=== PATIENT | male | born 1995 | race Caucasian/White ===

== ENCOUNTER 2017-03-02 04:40 | Day surgery (SDC) | payer OTHER ==
[~2017-03-02] VITALS: Ht 177.8 cm; Wt 61.3 kg
--- NOTE | 2017-03-02 05:11 | ED Abdominal Pain ---
General Chief Complaint: Abdominal/GI Problems Stated Complaint: ABD PAIN Source of Information: Patient History of Present Illness Time Seen By Provider: 04:55 Initial Comments PT C/O GENERALIZED ABDOMINAL PAIN SINCE 1700 YESTERDAY AFTER NOON PT STATES HE ATE A VERY LARGE BOWL OF HAM AND BEANS, SHORTLY AFTER THAT HE BEGAN TO HAVE GENERALIZED ABDOMINAL PAIN PAIN HAS CONTINUED THROUGHOUT THE NIGHT, AND GOTTEN WORSE. SLIGHT NAUSEA, NO VOMITING NO FEVER NO URINARY SYMPTOMS WENT TO [employer] AND GOT AN ENEMA, AND USED IT PRIOR TO ARRIVAL. HAD TEMPORARY RELIEF OF PAIN AFTER HAVING BM, THEN PAIN CAME BACK HAS NOT BEEN CONSTIPATED, HAD A BM YESTERDAY AT 1400 PAIN IS WORSE WITH MOVING, STANDING UPRIGHT, LAYING FLAT/OUTSTRETCHED AND WITH MOVING RIGHT LEG PAIN IS MOST SEVERE ON RIGHT SIDE. Allergies and Home Medications Allergies Coded Allergies: No Known Drug Allergies (Unverified , 03/02/17) Review of Systems Constitutional: no symptoms reported Respiratory: No Symptoms Reported Cardiovascular: No Symptoms Reported Gastrointestinal: See HPI, Abdominal Pain, Denies Constipated, Nausea, Denies Vomiting Genitourinary: No Symptoms Reported Musculoskeletal: no symptoms reported Skin: no symptoms reported Psychiatric/Neurological: No Symptoms Reported Endocrine: No Symptoms Reported Hematologic/Lymphatic: No Symptoms Reported Past Byaxswh-Jcwzgd-Mnfmsj Hx Patient Social History Alcohol Use: Occasionally Uses Recreational Drug Use: No Smoking Status: Never a Smoker Recent Foreign Travel: No Contact w/Someone Who Travel: No Recent Hopitalizations: No Physical Abuse: No Sexual Abuse: No Mistreated: No Fear: No Surgeries History of Surgeries: Yes Surgeries: Adenoidectomy, Tonsillectomy Cardiovascular History of Cardiac Disorders: No Neurological History of Neurological Disord: No Genitourinary History of Genitourinary Disor: No Gastrointestinal History of Gastrointestinal Di: No Musculoskeletal History of Musculoskeletal Dis: No Endocrine History of Endocrine Disorders: No Psychosocial Suicide Risk Score: 0 Integumentary History of Skin or Integumenta: No Physical Exam Vital Signs VS - Last 72 Hours, by Label 03/02/17 04:50 Temp 97.7 Pulse 98 Resp 20 B/P (MAP) 140/76 (97) Pulse Ox 98 O2 Delivery Room Air Capillary Refill : General Appearance: mild distress (DUE TO PAIN), thin, other (WALKS SLOWLY, BENT AT WAIST. UNABLE TO LAY FLAT ON BACK--LAYS IN POSITION ON LEFT SIDE, HOLDING ABDOMEN. 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, no motor/sensory deficits, alert, oriented x 3 Skin: normal color, warm/dry, No rash Progress/Results/Core Measures Results/Orders Lab Results Laboratory Tests Test 03/02/17 05:42 03/02/17 05:51 Range/Units Urine Color YELLOW Urine Clarity CLEAR Urine pH 5 5-9 Urine Specific [place] 1.025 H 1.016-1.022 Urine Protein NEGATIVE NEGATIVE Urine Glucose (UA) NEGATIVE NEGATIVE Urine Ketones NEGATIVE NEGATIVE Urine Nitrite NEGATIVE NEGATIVE Urine Bilirubin NEGATIVE NEGATIVE Urine Urobilinogen NORMAL NORMAL MG/DL Urine Leukocyte Esterase NEGATIVE NEGATIVE Urine RBC (Auto) 3+ H NEGATIVE Urine RBC 0-2 /HPF Urine WBC NONE /HPF Urine Squamous Epithelial Cells NONE /HPF Urine Crystals NONE /LPF Urine Bacteria NEGATIVE /HPF Urine Casts NONE /LPF Urine Mucus SMALL H /LPF Urine Culture Indicated NO Urine Opiates Screen NEGATIVE NEGATIVE Urine Oxycodone Screen NEGATIVE NEGATIVE Urine Methadone Screen NEGATIVE NEGATIVE Urine Propoxyphene Screen NEGATIVE NEGATIVE Urine Barbiturates Screen NEGATIVE NEGATIVE Ur Tricyclic Antidepressants Screen NEGATIVE NEGATIVE Urine Phencyclidine Screen NEGATIVE NEGATIVE Urine Amphetamines Screen NEGATIVE NEGATIVE Urine Methamphetamines Screen NEGATIVE NEGATIVE Urine Benzodiazepines Screen NEGATIVE NEGATIVE Urine Cocaine Screen NEGATIVE NEGATIVE Urine Cannabinoids Screen NEGATIVE NEGATIVE White Blood Count 20.0 H 4.3-11.0 10^3/uL Red Blood Count 5.22 4.35-5.85 10^6/uL Hemoglobin 15.2 13.3-17.7 G/DL Hematocrit 43 40-54 % Mean Corpuscular Volume 82 80-99 FL Mean Corpuscular Hemoglobin 29 25-34 PG Mean Corpuscular Hemoglobin Concent 35 32-36 G/DL Red Cell Distribution Width 13.5 10.0-14.5 % Platelet Count 163 130-400 10^3/uL Mean Platelet Volume 10.3 7.4-10.4 FL Neutrophils (%) (Auto) 76 H 42-75 % Lymphocytes (%) (Auto) 13 12-44 % Monocytes (%) (Auto) 8 0-12 % Eosinophils (%) (Auto) 4 0-10 % Basophils (%) (Auto) 0 0-10 % Neutrophils # (Auto) 15.2 H 1.8-7.8 X 10^3 Lymphocytes # (Auto) 2.5 1.0-4.0 X 10^3 Monocytes # (Auto) 1.6 H 0.0-1.0 X 10^3 Eosinophils # (Auto) 0.7 H 0.0-0.3 10^3/uL Basophils # (Auto) 0.0 0.0-0.1 10^3/uL Neutrophils % (Manual) 70 % Lymphocytes % (Manual) 16 % Monocytes % (Manual) 6 % Eosinophils % (Manual) 2 % Basophils % (Manual) 0 % Band Neutrophils 2 % Reactive Lymphocytes 4 % Blood Morphology Comment NORMAL Sodium Level 138 135-145 MMOL/L Potassium Level 4.3 3.6-5.0 MMOL/L Chloride Level 102 98-107 MMOL/L Carbon Dioxide Level 24 21-32 MMOL/L Anion Gap 12 5-14 MMOL/L Blood Urea Nitrogen 10 7-18 MG/DL Creatinine 0.89 0.60-1.30 MG/DL Estimat Glomerular Filtration Rate > 60 BUN/Creatinine Ratio 11 Glucose Level 97 70-105 MG/DL Calcium Level 9.6 8.5-10.1 MG/DL Total Bilirubin 0.7 0.1-1.0 MG/DL Aspartate Amino Transf (AST/SGOT) 19 5-34 U/L Alanine Aminotransferase (ALT/SGPT) 12 0-55 U/L Alkaline Phosphatase 82 40-136 U/L Total Protein 8.0 6.4-8.2 GM/DL Albumin 4.7 H 3.2-4.5 GM/DL Amylase Level 41 25-125 U/L Lipase 27 8-78 U/L My Orders Orders - MIKKI,ELLIS K DO Abdomen, Flat & Upright/Decub (03/02/17 04:55) Saline Lock/Iv-Start (03/02/17 05:40) Amylase (03/02/17 05:40) Cbc With Automated Diff (03/02/17 05:40) Comprehensive Metabolic Panel (03/02/17 05:40) Lipase (03/02/17 05:40) Ua Culture If Indicated (03/02/17 05:40) Ct Abd/Pelv W (Appendicitis) (03/02/17 05:40) Saline Lock/Iv-Start (03/02/17 05:40) Saline Lock/Iv-Start (03/02/17 05:40) Lactated Ringers (Lr 1000 Ml Iv Solution (03/02/17 05:40) Ondansetron Injection (Zofran Injectio (03/02/17 05:45) Ketorolac Injection (Toradol Injection) (03/02/17 05:40) Manual Differential (03/02/17 05:51) Iohexol Injection (Omnipaque 350 Mg/Ml 1 (03/02/17 06:15) Ns (Ivpb) (Sodium Chloride 0.9% Ivpb Bag (03/02/17 06:15) Medications Given in ED Current Medications Medications Dose Ordered Sig/Carmen Route Start Time Stop Time Status Last Admin Dose Admin Iohexol 100 ml ONCE ONCE IV 03/02/17 06:15 03/02/17 06:16 DC 03/02/17 06:05 100 ML Lactated Ringer's 1,000 ml @ 0 mls/hr Q0M ONCE IV 03/02/17 05:40 03/02/17 06:01 DC 03/02/17 05:51 1,000 MLS/HR Ondansetron HCl 4 mg ONCE ONCE IVP 03/02/17 05:45 03/02/17 06:01 DC 03/02/17 05:52 4 MG Sodium Chloride 100 ml ONCE ONCE IV 03/02/17 06:15 03/02/17 06:16 DC 03/02/17 06:06 80 ML Vital Signs/I&O Vital Sign - Last 12Hours 03/02/17 04:50 Temp 97.7 Pulse 98 Resp 20 B/P (MAP) 140/76 (97) Pulse Ox 98 O2 Delivery Room Air Progress Note : Progress Note PAIN AND NAUSEA EASED WITH MEDICATIONS--ABLE TO LAY FLAT, AND NO LONGER TEARFUL , AND IS MORE TALKATIVE. NO DETERIORATION IN PT'S CONDITION DURING ER STAY Diagnostic Imaging Comments ABDOMEN XRAYS--NO ACUTE PROCESS, LARGE AMOUNT OF GAS AND STOOL, PENDING RADIOLOGIST REVIEW CT ABDOMEN/PELVIS--APPENDICITIS, PER [facility] VIA FAX @ Reviewed: Reviewed by Me Departure Communication (Admissions) Progress Notes 0620--SPOKE WITH DR. FUENTES, ACCEPTS PT FOR ADMIT. HE WILL TAKE PT TO SURGERY SOMETIME THIS MORNING. ADVISES TO START PT ON ZOSYN Impression Impression: Primary Impression: Appendicitis Disposition: ADMITTED INPATIENT Condition: Improved Admissions Decision to Admit Reason: Admit from ER (General) Decision to Admit/Date: Mar 02, 2017 Time/Decision to Admit Time: 06:20 Departure-Patient Inst. Referrals: NO,LOCAL PHYSICIAN (PCP/Family) Primary Care Physician ELLIS KAYE DO Mar 02, 2017 05:11
[2017-03-02] MEDS ORDERED: LACTATED RINGERS 1,000 ML IV ONE (05:40)
[2017-03-02] MEDS ORDERED: KETOROLAC 30 MG/ML VIAL IVP STA (05:40)
[2017-03-02] MEDS ORDERED: ONDANSETRON 4 MG/2 ML (SDV) Z0FRAN IVP ONE (05:45)
[2017-03-02 05:47] LABS: BILIRUBIN,URINE NEGATIVE (NEGATIVE); KETONES,URINE NEGATIVE (NEGATIVE); LEUKOCYTE ESTERASE ,URINE NEGATIVE (NEGATIVE); NITRITE,URINE NEGATIVE (NEGATIVE); PH,URINE 5 (5-9); PROTEIN,URINE NEGATIVE (NEGATIVE); UROBILINOGEN,URINE NORMAL (NORMAL)
[2017-03-02 06:00] LABS: BASOPHILS % (AUTO) 0 % (0-10); EOSINOPHILS # (AUTO) 0.7 10^3/uL (0.0-0.3); EOSINOPHILS % (AUTO) 4 % (0-10); LYMPHOCYTES # (AUTO) 2.5 X 10^3 (1.0-4.0); LYMPHOCYTES % (AUTO) 13 % (12-44); MEAN CORPUSCULAR HEMOGLOBIN 29 PG (25-34); MEAN CORPUSCULAR HGB CONC 35 G/DL (32-36); MEAN CORPUSCULAR VOLUME 82 FL (80-99); MEAN PLATELET VOLUME 10.3 FL (7.4-10.4); MONOCYTES # (AUTO) 1.6 X 10^3 (0.0-1.0); MONOCYTES % (AUTO) 8 % (0-12); NEUTROPHILS # (AUTO) 15.2 X 10^3 (1.8-7.8); NEUTROPHILS % (AUTO) 76 % (42-75); PLATELET COUNT 163 10^3/uL (130-400); RED BLOOD COUNT 5.22 10^6/uL (4.35-5.85); RED CELL DISTRIBUTION WIDTH 13.5 % (10.0-14.5)
[2017-03-02 06:14] LABS: BAND NEUTROPHILS 2 %; BASOPHILS % (MANUAL) 0 %; EOSINOPHILS % (MANUAL) 2 %; LYMPHOCYTES % (MANUAL) 16 %; NEUTROPHILS % (MANUAL) 70 %; REACTIVE LYMPHOCYTES 4 %
[2017-03-02] MEDS ORDERED: NS 100 ML (IVPB) BAG IV ONE (06:15)
[2017-03-02] MEDS ORDERED: IOHEXOL 350 MG/ML 100 ML (OMNIPAQUE 350) VIAL IV ONE (06:15)
[2017-03-02 06:28] LABS: ALANINE AMINOTRANSFERASE 12 U/L (0-55); ALBUMIN 4.7 GM/DL (3.2-4.5); AMYLASE 41 U/L (25-125); ANION GAP 12 MMOL/L (5-14); ASPARTATE AMINO TRANSFERASE 19 U/L (5-34); BILIRUBIN,TOTAL 0.7 MG/DL (0.1-1.0); BLOOD UREA NITROGEN 10 MG/DL (7-18); BUN/CREATININE RATIO 11; CALCIUM 9.6 MG/DL (8.5-10.1); CARBON DIOXIDE 24 MMOL/L (21-32); CHLORIDE 102 MMOL/L (98-107); CREATININE SERUM 0.89 MG/DL (0.60-1.30); GFR ESTIMATED > 60; GLUCOSE 97 MG/DL (70-105); LIPASE 27 U/L (8-78); POTASSIUM 4.3 MMOL/L (3.6-5.0); SODIUM 138 MMOL/L (135-145)
[2017-03-02] MEDS ORDERED: PIPERACILLIN/TAZO 4.5 GM VIAL (ZOSYN) IV ONE ×2 (06:31→06:45)
[2017-03-02] MEDS ORDERED: NS (IVPB) 100 ML ONE (06:31)
[2017-03-02] MEDS ORDERED: fentaNYL INJECTION 100 MCG/2 ML AMP IVP STA (06:32)
--- NOTE | 2017-03-02 06:36 | Diagnostic Imaging Report ---
INDICATION: Abdominal pain and constipation. COMPARISON: None FINDINGS: AP upright and supine views of the abdomen are obtained. There is a large amount of stool throughout the colon. Bowel gas pattern is otherwise unremarkable. There is no evidence of free intraperitoneal air or portal venous gas. No urinary tract calcifications are suspected. The osseous structures appear unremarkable. IMPRESSION: There is a large amount of stool in the colon consistent with given history of constipation. No additional abnormality is demonstrated. Dictated by: Dictated on workstation # [id number]
--- OUTSIDE RECORDS SUMMARY | 2017-03-02 06:53 | XMS REPORT ---
Author Author Angel Pearl [facility] Address [address] [place], [place] [id number] Care Team Providers Care Professional Application Designer Name Role Phone Angel Pearl PCP Allergies and Adverse Reactions Name Reaction Notes doxycycline hyclate [facility] Plan of Treatment Not available. Medications Active Name Start Date Estimated Completion Date SIG Comments triamcinolone acetonide 0.1 % topical ointment 12/03/2015 apply a thin layer to the affected area(s) by topical route 2 times per day Name Start Date Expiration Date SIG Comments Benzaclin 1-5 % topical gel 11/21/2010 02/19/2011 apply to the affected area(s ) by topical route 2 times per day in the morning and evening for 30 days azithromycin 250 mg oral tablet 03/18/2012 03/23/2012 take 2 tablets (500 mg) by oral route once daily for 1 day then 1 tablet (250 mg) by oral route once daily for 4 days ibuprofen 600 mg oral tablet 04/04/2012 take 1 tablet (600 mg) by oral route every 6 hours as needed with food imiquimod 5 % topical cream in packet 10/20/2012 apply to the affected area( s) before bedtime by topical route 3 times per week and leave on skin for 6 to 10 hours, then increase to nightly amoxicillin 500 mg oral capsule 12/15/2012 12/22/2012 take 1 capsule (500 mg) by oral route every 8 hours for 7 days Augmentin 500-125 mg oral tablet 01/02/2013 01/09/2013 take 1 tablet by oral route every 12 hours for 7 days Bactrim DS 800-160 mg oral tablet 06/02/2012 08/31/2012 take 1 tablet by oral route 2 times per day for 30 days Nasonex 50 mcg/actuation nasal spray,non-aerosol 04/27/2013 spray 2 sprays in each nostril by intranasal route once daily Tamiflu 75 mg oral capsule 04/27/2013 05/02/2013 take 1 capsule (75 mg) by oral route 2 times per day for 5 days magnesium citrate oral solution 03/12/2014 Take 1 bottle. Wait for results. prednisone 20 mg oral tablet 06/15/2014 06/21/2014 Take 3 tabs x 2 days; then Take 2 tabs x 2 days; then Take 1 tab x 2 days. Augmentin 875-125 mg oral tablet 07/10/2014 07/17/2014 take 1 tablet by oral route every 12 hours for 7 days Discontinued Name Start Date Discontinued Date SIG Comments doxycycline monohydrate 150 mg oral tablet 02/08/2011 02/09/2011 take 1 tablet (150 mg) by oral route once daily for 30 days unavailable at pharmacy doxycycline hyclate 50 mg oral capsule 06/01/2012 take 1 capsule (50 mg) by oral route every 12 hours for 30 days Problem List Description Status Onset Acne Active 06/18/2014 Vital Signs Date Time BP-Sys(mm[Hg] BP-Tri(mm[Hg]) HR(bpm) RR(rpm) Temp WT HT HC BMI BSA BMI Percentile O2 Sat(%) 11/27/2015 4:01:00 PM 112 mmHg 70 mmHg 67 bpm 16 rpm 97.2 F 119 lbs 68 in 18.09 kg/m2 1.61 m2 0 % 100 % 07/10/2014 1:35:00 PM 120 mmHg 60 mmHg 94 bpm 16 rpm 98.7 F 120 lbs 68 in 18.2458 kg/m 1.616 m 1.2 % 99 % 06/15/2014 9:45:00 AM 119 mmHg 70 mmHg 53 bpm 16 rpm 97.9 F 119 lbs 68 in 18.09 kg/m2 1.61 m2 0.1 % 100 % 03/12/2014 2:11:00 PM 130 mmHg 90 mmHg 117 bpm 18 rpm 97 F 118 lbs 100 % 07/28/2013 2:03:00 PM 110 mmHg 70 mmHg 82 bpm 16 rpm 98.2 F 121 lbs 98 % 04/27/2013 9:07:00 AM 72 bpm 16 rpm 96.3 F 120 lbs 100 % 03/13/2013 3:12:00 PM 100 mmHg 60 mmHg 70 bpm 16 rpm 117 lbs 100 % 03/07/2013 3:36:00 PM 102 mmHg 60 mmHg 72 bpm 18 rpm 97.8 F 117.25 lbs 68 in 17.8276 kg/m 1.60 m2 3.5 % 100 % 01/02/2013 11:21:00 AM 116 mmHg 68 mmHg 76 bpm 18 rpm 98.4 F 111 lbs 69 in 16.39 kg/m2 1.5656 m -17.7 % 97 % 12/15/2012 8:46:00 AM 71 bpm 20 rpm 97.8 F 114 lbs 66 in 18.3999 kg/m 1.55 m2 10 % 100 % 10/20/2012 2:18:00 PM 73 bpm 16 rpm 98.8 F 113 lbs 99 % 05/31/2012 9:26:00 AM 67 bpm 18 rpm 98.8 F 111.2 lbs 99 % 03/31/2012 9:02:00 AM 118 mmHg 48 mmHg 101 bpm 16 rpm 98.9 F 107 lbs 99 % 03/18/2012 10:54:00 AM 78 bpm 16 rpm 97.9 F 108.9 lbs 100 % 12/29/2011 2:31:00 PM 69 bpm 20 rpm 98.2 F 107.8 lbs 100 % 07/30/2011 8:56:00 AM 116 mmHg 66 mmHg 78 bpm 16 rpm 98 F 100 lbs 65.75 in 16.2632 kg/m 1.4506 m -3.3 % 100 % 03/10/2011 3:22:00 PM 100 bpm 18 rpm 99.7 F 99.4 lbs 100 % 02/03/2011 3:31:00 PM 110 mmHg 56 mmHg 87 bpm 16 rpm 98.9 F 100.4 lbs 65.75 in 16.33 kg/m2 1.4535 m 0.5 % 100 % 11/21/2010 8:27:00 AM 118 mmHg 68 mmHg 75 bpm 20 rpm 98.2 F 96 lbs 99 % 02/26/2010 3:05:00 PM 80 bpm 18 rpm 98.5 F 91.787 lbs 02/17/2010 1:26:00 PM 108 mmHg 64 mmHg 84 bpm 18 rpm 99 F 93 lbs 63 in 16.47 kg/m2 1.3693 m 7.4 % 01/15/2010 3:20:00 PM 105 mmHg 80 mmHg 88 bpm 20 rpm 99.3 F 89.6 lbs 12/10/2009 3:53:00 PM 104 mmHg 74 mmHg 74 bpm 20 rpm 98.4 F 90.5 lbs 07/16/2009 3:37:00 PM 102 mmHg 60 mmHg 76 bpm 24 rpm 98.9 F 84.125 lbs 61 in 15.8951 kg/m 1.28 m2 4.8 % 07/08/2009 4:08:00 PM 110 mmHg 68 mmHg 80 bpm 18 rpm 98.8 F 89.6 lbs 61 in 16.93 kg/m2 1.3226 m 17.8 % Social History Name Description Comments Siblings at home sister, Nadine ( 01/26/05), brothers Sincere ( 08/28/01) , To ( 02/24/94); maternal half-brother, Dilip ( 09/27/90) Lives with both mom and dad Second hand smoke exposure student (high school) 9th grade at [employer] ([id number]) smoke inside Pets at home (inside) dog Tobacco Never smoker History of Procedures Date Ordered Description Order Status 03/31/2012 12:00 AM X-RAY EXAM OF HIP Returned 03/31/2012 12:00 AM US EXAM SCROTUM Returned 07/16/2009 12:00 AM STREP A ASSAY W/OPTIC Reviewed 10/20/2012 12:00 AM CHEST X-RAY 2VW FRONTAL&LATL Returned 01/02/2013 12:00 AM THER/PROPH/DIAG INJ SC/IM Reviewed 01/02/2013 12:00 AM Decadron, Per [address] [facility]# [id number] Reviewed 01/02/2013 12:00 AM Depo-Medrol, Per [address] [facility]#[id number] Reviewed 03/16/2013 12:00 AM DESTRUCT PREMALG LESION Reviewed 04/27/2013 12:00 AM STREP A ASSAY W/OPTIC Returned 04/27/2013 12:00 AM INFLUENZA A/B AG EIA Returned 07/28/2013 12:00 AM Dermatology Consult Reviewed 02/26/2010 12:00 AM Kenalog per 10Mg [facility]#[id number] (Jr) Reviewed 03/12/2014 12:00 AM RADEX ABDOMEN COMPL W/DCBTS&/ERC VIEWS Returned Results Summary Data and Description Results 04/27/2013 9:50 AM INFLUENZA A & B NO INFLUENZA A OR B DETECTED History Of Immunizations Not available. History of Past Illness Name Date of Onset Comments Well Child Examination Jul 08 2009 4:16PM Family History Of Ischemic Heart Disease Jul 08 2009 4:16PM Gastroenteritis, Viral Jul 16 2009 3:42PM Pharyngitis, Acute Jul 16 2009 3:42PM Left Ankle Sprain/Strain Dec 10 2009 3:57PM Left knee pain Dec 10 2009 3:57PM Sinusitis, Acute Jan 15 2010 3:22PM Sports Physical Feb 17 2010 1:30PM Pharyngitis, Acute Feb 26 2010 3:06PM Acne 06/18/2014 Acne Nov 21 2010 8:31AM Sports Physical Feb 03 2011 3:30PM Acne Feb 03 2011 3:30PM Acute Sinusitis Mar 10 2011 3:31PM Oral Soft Tissue Disease Mar 10 2011 3:31PM Pharyngitis, Acute Jul 30 2011 8:58AM Upper Respiratory Infection Mar 18 2012 10:56AM Upper Respiratory Infection Dec 29 2011 2:38PM Pain in joint; Hip right Mar 31 2012 9:05AM Other testicular dysfunction Mar 31 2012 9:05AM Dermatitis due to substances taken internally; due to drugs and medicines May 31 2012 9:27AM Pectus Excavatum Oct 20 2012 2:20PM Upper Respiratory Infections Dec 15 2012 8:48AM Upper Respiratory Infection Jan 02 2013 11:24AM Well Child Examination Mar 07 2013 3:38PM Wart Mar 07 2013 3:38PM Wart Oct 20 2012 2:20PM Common Wart Mar 16 2013 4:57PM Nasal congestion Apr 27 2013 9:09AM Pharyngitis, Acute Apr 27 2013 9:09AM Fever, unspecified Apr 27 2013 9:09AM Upper Respiratory Infection Apr 27 2013 9:09AM Acne Vulgaris Jul 28 2013 2:04PM Abdominal pain Mar 12 2014 2:12PM Constipation Mar 12 2014 2:12PM Eustachian tube dysfunction, right Jun 15 2014 9:46AM Acne Jun 15 2014 9:46AM Lymphadenopathy of right cervical region Jun 15 2014 9:46AM Sinusitis Jul 10 2014 1:36PM Nevus of lower back Nov 27 2015 4:02PM Payers Insurance Name Company Name Plan Name Plan Number Policy Number Policy Group Number Start Date [facility] [id number] Thursday, 2012 [place] Medical Assistance Program [facility] Prog [id number] [facility] [id number] N/A [employer] RHC - CMP [employer] - RHC - CMP [id number] N/A [employer] [place] [employer] [place] [id number] N/A History of Encounters Visit Date Visit Type Provider 11/27/2015 Office visit Angel Pearl LANDSCAPE ENGINEER 07/10/2014 Office visit Angel Pearl LANDSCAPE ENGINEER 06/15/2014 Office visit Angel Pearl LANDSCAPE ENGINEER 03/12/2014 Office visit Angel Pearl LANDSCAPE ENGINEER 07/28/2013 Office visit Angel Pearl LANDSCAPE ENGINEER 04/27/2013 Office visit Rena Norris MD 03/13/2013 Office visit Angel Pearl LANDSCAPE ENGINEER 03/07/2013 Office visit Angel Pearl LANDSCAPE ENGINEER 01/02/2013 Office visit Angel Pearl LANDSCAPE ENGINEER 12/15/2012 Office visit Angel Pearl LANDSCAPE ENGINEER 10/20/2012 Office visit Rena Norris MD 05/31/2012 Office visit Rena Norris MD 03/31/2012 Office visit Rena Norris MD 03/18/2012 Office visit Rena Norris MD 12/29/2011 Office visit Rena Norris MD 07/30/2011 Office visit Rena Norris MD 03/10/2011 Office visit Darcie Dey APRN 02/03/2011 Office visit Rena Norris MD 11/21/2010 Office visit Rena Norris MD 02/26/2010 Office visit Rena Norris MD 02/17/2010 Office visit Rena Norris MD 01/15/2010 Office visit Rena Norris MD 12/10/2009 Office visit Rena Norris MD 07/16/2009 Office visit Rena Norris MD 07/08/2009 Office visit Rena Norris MD 12/18/2008 Office visit Senait RAZO
--- OUTSIDE RECORDS SUMMARY | 2017-03-02 06:53 | XMS REPORT ---
Author Author Rena Norris [facility] Address [address] [place], [place] [address] Care Team Providers Care Low Voltage Electrician Name Role Phone Rena Norris PCP Allergies and Adverse Reactions Name Reaction Notes doxycycline hyclate [facility] Plan of Treatment Not available. Medications Active Name Start Date Estimated Completion Date SIG Comments Augmentin oral tablet 875-125 mg 07/10/2014 07/17/2014 take 1 tablet by oral route every 12 hours for 7 days Name Start Date Expiration Date SIG Comments Benzaclin Topical Gel 1-5 % 11/21/2010 02/19/2011 apply to the affected area(s ) by topical route 2 times per day in the morning and evening for 30 days azithromycin Oral tablet 250 mg 03/18/2012 03/23/2012 take 2 tablets (500 mg) by oral route once daily for 1 day then 1 tablet (250 mg) by oral route once daily for 4 days ibuprofen Oral tablet 600 mg 04/04/2012 take 1 tablet (600 mg) by oral route every 6 hours as needed with food imiquimod Topical Cream in Packet 5 % 10/20/2012 apply to the affected area( s) before bedtime by topical route 3 times per week and leave on skin for 6 to 10 hours, then increase to nightly amoxicillin Oral capsule 500 mg 12/15/2012 12/22/2012 take 1 capsule (500 mg) by oral route every 8 hours for 7 days Augmentin Oral tablet 500-125 mg 01/02/2013 01/09/2013 take 1 tablet by oral route every 12 hours for 7 days Bactrim DS oral tablet 800-160 mg 06/02/2012 08/31/2012 take 1 tablet by oral route 2 times per day for 30 days Nasonex nasal spray,non-aerosol 50 mcg/actuation 04/27/2013 spray 2 sprays in each nostril by intranasal route once daily Tamiflu oral capsule 75 mg 04/27/2013 05/02/2013 take 1 capsule (75 mg) by oral route 2 times per day for 5 days magnesium citrate oral solution 03/12/2014 Take 1 bottle. Wait for results. prednisone oral tablet 20 mg 06/15/2014 06/21/2014 Take 3 tabs x 2 days; then Take 2 tabs x 2 days; then Take 1 tab x 2 days. Discontinued Name Start Date Discontinued Date SIG Comments doxycycline monohydrate Oral Tablet 150 mg 02/08/2011 02/09/2011 take 1 tablet (150 mg) by oral route once daily for 30 days unavailable at pharmacy doxycycline hyclate Oral Capsule 50 mg 06/01/2012 take 1 capsule (50 mg) by oral route every 12 hours for 30 days Problem List Description Status Onset Acne Active 06/18/2014 Vital Signs Date Time BP-Sys(mm[Hg] BP-Tri(mm[Hg]) HR(bpm) RR(rpm) Temp WT HT HC BMI BSA BMI Percentile O2 Sat(%) 07/10/2014 1:35:00 PM 120 mmHg 60 mmHg 94 bpm 16 rpm 98.7 F 120 lbs 68 in 18.25 kg/m2 1.62 m2 1.2 % 99 % 06/15/2014 9:45:00 AM 119 mmHg 70 mmHg 53 bpm 16 rpm 97.9 F 119 lbs 68 in 18.0937 kg/m 1.6093 m 0.1 % 100 % 03/12/2014 2:11:00 PM [...] F 93 lbs 63 in 16.47 kg/m2 1.37 m2 7.4 % 01/15/2010 3:20:00 PM 105 mmHg 80 mmHg 88 bpm 20 rpm 99.3 F 89.6 lbs 12/10/2009 3:53:00 PM 104 mmHg 74 mmHg 74 bpm 20 rpm 98.4 F 90.5 lbs 07/16/2009 3:37:00 PM 102 mmHg 60 mmHg 76 bpm 24 rpm 98.9 F 84.125 lbs 61 in 15.8951 kg/m 1.2815 m 4.8 % 07/08/2009 4:08:00 PM 110 mmHg 68 mmHg 80 bpm 18 rpm 98.8 F 89.6 lbs 61 in 16.93 kg/m2 1.32 m2 17.8 % Social History Name Description Comments Siblings at home sister, Nadine ( 01/26/05), brothers Sincere ( 08/28/01) , To ( 02/24/94); maternal half-brother, Dilip ( 09/27/90) Lives with both mom and dad Second hand smoke exposure student (high school) 9th grade at [employer] ([id number]) smoke inside Pets at home (inside) dog Tobacco Never smoker History of Procedures Date Ordered Description Order Status 03/31/2012 12:00 AM X-RAY EXAM OF HIP Returned 03/31/2012 12:00 AM US EXAM SCROTUM Returned 07/16/2009 12:00 AM STREP A ASSAY W/OPTIC Reviewed 10/20/2012 12:00 AM CHEST X-RAY 2VW FRONTAL&LATL Returned 01/02/2013 12:00 AM THER/PROPH/DIAG INJ SC/IM Reviewed 03/16/2013 12:00 AM DESTRUCT PREMALG LESION Reviewed 04/27/2013 12:00 AM STREP A ASSAY W/OPTIC Returned 04/27/2013 12:00 AM INFLUENZA A/B AG EIA Returned Results Summary Data and Description Results [...] 2014 9:46AM Sinusitis Jul 10 2014 1:36PM Payers Insurance Name Company Name Plan Name Plan Number Policy Number Policy Group Number Start Date [employer] [place] [employer] [place] [id number] N/A [place] [employer] [place] [employer] [place] [id number] N/A [facility] [id number] N/A [facility] [place] - C[facility] - [place] - [place] [id number] N/A History of Encounters Visit Date Visit Type Provider 07/10/2014 Office visit Angel Pearl APRN 06/15/2014 Office visit Angel Pearl APRN 03/12/2014 Office visit Angel Pearl APRN 07/28/2013 Office visit Angel Pearl APRN 04/27/2013 Office visit Rena Norris MD 03/13/2013 Office visit Angel Pearl APRN 03/07/2013 Office visit Angel Pearl APRN 01/02/2013 Office visit Angel Pearl APRN 12/15/2012 Office visit Angel Pearl APRN 10/20/2012 Office visit Rena Norris MD 05/31/2012 [...]
--- OUTSIDE RECORDS SUMMARY | 2017-03-02 06:54 | XMS REPORT | CCD ---
Author Author YURY ROSA Organization Unknown Address [address] [place], [place] [id number] Care Team Providers Care Compensation Consulting Manager Name Role Phone LAURA AMEZCUA, KRISHNA Ham Attphys KRISHNA SANCHEZ MDsulisa Vital Signs Unknown or Not Available. Allergies Allergy Code Allergy Type Reaction Status No Known Drug Allergies 0 No known drug allergies Active Procedures Unknown or Not Available. History of Immunizations Immunization Code Date DTP 01/31/1996 DTP 04/14/1996 DTP 06/12/1996 OPV 01/31/1996 OPV 04/14/1996 OPV 06/12/1996 Hep B, adolescent or pediatric 08 1995 Hep B, adolescent or pediatric 08 1995 Hep B, adolescent or pediatric 08 06/13/1996 influenza, split (incl. purified surface antigen) 15 01/19/2006 influenza, split (incl. purified surface antigen) 15 03/01/2008 DTaP 20 05/11/1997 varicella 21 05/11/1997 Hib (HbOC) 47 10/05/1997 Hib (PRP-OMP) 49 01/31/1996 Hib (PRP-OMP) 49 04/14/1996 Hib (PRP-OMP) 49 06/12/1996 Hep A, ped/adol, 2 dose 83 09/13/2006 influenza, live, intranasal 111 01/19/2005 Tdap 115 10/31/2008 Novel [id number] 127 03/08/2009 Problems Unknown or Not Available. Results Unknown or Not Available. Active Medications Unknown or Not Available. Medications Administered During Visit Unknown or Not Available. Encounters Encounter Diagnosis Diagnosis Code Start Date Sprain of wrist [id number] 08/11/2015 Social History Smoking Status Code Start Date End Date Never smoker [id number] Patient Decision Aids Unknown or Not Available. Discharge Instructions You were admitted to [facility] on 08/11/2015 04:35 with a principal diagnosis of Other specified sprain of left wrist, initial encounter You were discharged from [facility] on 08/11/2015 05:28 Should you have any questions prior to discharge, please contact a member of your healthcare team. If you have left the hospital and have any questions, please contact your primary care physician. Chief Complaint and Reason For Visit Chief Complaint Date of Onset LEFT HAND INJURY Function Status Unknown or Not Available. Plan of Care Unknown or Not Available. Referral/Transition of Care Unknown or Not Available.
--- OUTSIDE RECORDS SUMMARY | 2017-03-02 06:54 | XMS REPORT | Continuity of Care Document ---
Author Author [facility] Address Unknown Phone Unavailable Allergies Medications Problems Procedures Results Encounters ACCT No. Visit Date/Time Discharge Status Pt. Type Provider Facility Loc./Unit Complaint [id number] 11/27/2015 16:50:01 11/27/2015 23: 59:59 [facility] Outpatient Angel Pearl [id number] 07/10/2014 14:24:55 07/10/2014 23: 59:59 [facility] Outpatient Angel Pearl [id number] 06/15/2014 10:32:38 06/15/2014 23: 59:59 [facility] Outpatient Angel Pearl [id number] 03/12/2014 14:58:18 03/12/2014 23: 59:59 [facility] Outpatient Angel Pearl [id number] 07/28/2013 14:53:50 07/28/2013 23: 59:59 [facility] Outpatient Angel Pearl [id number] 04/27/2013 09:59:59 04/27/2013 23: 59:[address] [facility] Outpatient Rena Norris [id number] 03/13/2013 15:49:34 03/13/2013 23: 59:59 Angel Moore
--- OUTSIDE RECORDS SUMMARY | 2017-03-02 06:54 | XMS REPORT ---
Author Author Angel Pearl [facility] Address [address] [place], [place] [id number] Care Team Providers Care Web Search Evaluator Name Role Phone Angel Pearl PCP Allergies and Adverse Reactions Name Reaction Notes doxycycline hyclate [facility] Plan of Treatment Not available. [...] exposure student (high school) 9th grade at [employer] ([phone]) smoke inside Pets at home (inside) dog Tobacco Never smoker History of Procedures Date Ordered Description Order Status 03/31/2012 12:00 AM X-RAY EXAM OF HIP Returned 03/31/2012 12:00 AM US EXAM SCROTUM Returned 07/16/2009 12:00 AM STREP A ASSAY W/OPTIC Reviewed 10/20/2012 12:00 AM CHEST X-RAY 2VW FRONTAL&LATL Returned 01/02/2013 12:00 AM THER/PROPH/DIAG INJ SC/IM Reviewed 01/02/2013 12:00 AM Decadron, Per 1 Mg [facility]# [id number] Reviewed 01/02/2013 12:00 AM Depo-Medrol, Per 80 Mg [facility]#2907-4695-76 Reviewed 03/16/2013 12:00 AM DESTRUCT PREMALG LESION Reviewed 04/27/2013 12:00 AM STREP A ASSAY W/OPTIC Returned 04/27/2013 12:00 AM INFLUENZA A/B AG EIA Returned 07/28/2013 12:00 AM Dermatology Consult Reviewed 02/26/2010 12:00 AM Kenalog per 10Mg Im-[facility]#[id number] (Jr) Reviewed 03/12/2014 12:00 AM RADEX ABDOMEN [...] of lower back Nov 27 2015 4:02PM Nevus of lower back Dec 06 2015 12:37PM Payers Insurance Name Company Name Plan Name Plan Number Policy Number Policy Group Number Start Date [facility] [id number] Thursday, 2012 [place] [employer] [place] [employer] Assistance Prog [id number] N/A [facility] [id number] N/A [employer] - RHC - CMFHP [employer] - RHC - CMFHP [id number] N/A [employer] - [place] State [place] [employer] [place] [id number] N/A History of Encounters Visit Date Visit Type Provider 11/27/2015 Office visit Angel Pearl PLATE WASHER 07/10/2014 Office visit Angel Pearl PLATE WASHER 06/15/2014 Office visit Angel Pearl PLATE WASHER 03/12/2014 Office visit Angel Pearl PLATE WASHER 07/28/2013 Office visit Angel Pearl PLATE WASHER 04/27/2013 Office visit Rena Norris MD 03/13/2013 Office visit Angel Pearl PLATE WASHER 03/07/2013 Office visit Angel Pearl PLATE WASHER 01/02/2013 Office visit Angel Pearl PLATE WASHER 12/15/2012 Office visit Angel Pearl PLATE WASHER 10/20/2012 Office visit Rena Norris MD 05/31/2012 [...]
[2017-03-02 08:00] VITALS: BP 138/63
--- NOTE | 2017-03-02 08:29 | Diagnostic Imaging Report ---
PROCEDURE: CT abdomen and pelvis with contrast, rule out appendicitis. TECHNIQUE: Multiple contiguous axial images were obtained through the abdomen and pelvis after the administration of intravenous contrast. INDICATION: Abdominal pain and constipation. Evaluate for appendicitis. COMPARISON: None. FINDINGS: The lung bases are clear. The liver, gallbladder, pancreas, spleen, adrenal glands and kidneys appear unremarkable. The bladder appears unremarkable. The appendix is retrocecal in position and abnormal in appearance, dilated up to 8 mm in diameter. There is mild wall thickening and there is moderate periappendiceal inflammatory change consistent with acute appendicitis. There is no evidence of rupture or abscess at this time. There is no free fluid or free air. There are some prominent lymph nodes in the mesentery of right lower quadrant likely reactive. Otherwise, no adenopathy is seen. Abdominal aorta appears normal in caliber. No acute osseous abnormality is demonstrated. IMPRESSION: 1. The appendix is abnormal in appearance consistent with acute appendicitis without evidence of rupture or abscess. No additional significant abnormality is seen. Agree with [facility] interpretation. Dictated by: Dictated on workstation # [id number]
[2017-03-02] MEDS ORDERED: fentaNYL INJECTION 100 MCG/2 ML AMP ONE ×2 (08:34→11:00)
[2017-03-02] MEDS ORDERED: IBUP-30 PO (08:57)
[2017-03-02] MEDS: fentaNYL INJECTION 100 MCG/2 ML AMP IVP PRN ×2 (09:08→16:02)
[2017-03-02] MEDS ORDERED: ONDANSETRON 4 MG/2 ML (SDV) Z0FRAN IVP PRN ×2 (09:15→13:45)
[2017-03-02] MEDS ORDERED: CATHETER FLUSH 10 ML SYR IV PRN (09:30)
[2017-03-02] MEDS ORDERED: INFLUENZA TRIvalent 2017-2018 0.5 ML/45 MCG SYR IM ONE (09:45)
--- NOTE | 2017-03-02 10:08 | History & Physical-Surgical ---
History of Present Illness History of Present Illness Reason for visit/HPI Pt is a 21 yo male admitted with acute appendicitis. He states the pain started yesterday around 5pm; he thought it was due to the large bowl of ham and beans he ate. States he had an episode similar to this about 2 years ago and was told it was constipation. He went out and got an enema but that did not help. He described the pain as 10 out of 10, started mid abdomen "hitesh all over" and now is located in RLQ. He had nausea and felt like vomiting but never did. States now his pain is controlled with the pain meds and is about a 1 out of 10. Moving and lifting hurt last night, best if he stayed still. It was a sharp stabbing pain, radiating to the right. Date of Admission Mar 02, 2017 at 06:20 Time Seen by Provider: 09:28 I consulted on this patient on 03/02/17 09:28 Attending Physician Hernando Dee DO Admitting Physician No,Local Physician Consult Allergies and Home Medications Allergies Coded Allergies: No Known Drug Allergies (Unverified , 03/02/17) Home Medications Ibuprofen 200 Mg Tablet, 400-600 MG PO Q6H PRN for PAIN-MILD, (Reported) Past Dgvqkll-Hhzskn-Bylodd Hx Patient Social History Alcohol Use: Occasionally Uses Recreational Drug Use: No Smoking Status: Never a Smoker Recent Foreign Travel: No Contact w/Someone Who Travel: No Recent Infectious Disease Expo: No Recent Hopitalizations: No Physical Abuse Screen: No Sexual Abuse: No Immunizations Up To Date PED Vaccines UTD: No Seasonal Allergies Seasonal Allergies: No Surgeries History of Surgeries: Yes Surgeries: Adenoidectomy, Tonsillectomy Respiratory History of Respiratory Disorde: No Cardiovascular History of Cardiac Disorders: No Neurological History of Neurological Disord: No Reproductive System Sexually Transmitted Disease: No HIV/AIDS: No Genitourinary History of Genitourinary Disor: No Gastrointestinal History of Gastrointestinal Di: No Musculoskeletal History of Musculoskeletal Dis: No Endocrine History of Endocrine Disorders: No HEENT History of HEENT Disorders: No Cancer History of Cancer: No Integumentary History of Skin or Integumenta: No Family Medical History Significant Family History: Other Conditions/Hx (Denies his mother or father have DM or HTN) Family Medial History: Patient reports no known family medical history. Constitutional: chills, malaise EENTM: No blurred vision, No vision loss, No mouth swelling, No epistaxis, No throat swelling Respiratory: No cough, No dyspnea on exertion, No hemoptysis Cardiovascular: No chest pain, No edema, No palpitations Gastrointestinal: RLQ, No jaundice, nausea, No vomiting Genitourinary: No decreased output, No discharge, No dysuria Musculoskeletal: No back pain, No gout, No joint pain Skin: No change in color, No change in hair/nails Psychiatric/Neurological: Denies Anxiety, Denies Depressed, Denies Headache, Denies Seizure, Denies Tingling, Denies Tremors Other pt denies any abnormal bleeding or bruising, no heat or cold intolerance Physical Exam Vital Signs Vital Sign - Last 12Hours 03/02/17 04:50 Temp 97.7 Pulse 98 Resp 20 B/P (MAP) 140/76 (97) Pulse Ox 98 O2 Delivery Room Air Capillary Refill : Less Than 3 Seconds General Appearance: No Apparent Distress, WD/WN Eyes: Bilateral Eye PERRL, Bilateral Eye EOMI HEENT: PERRL/EOMI, Pharynx Normal, No Pale Conjunctivae (L), No Pale Conjunctivae (R), No Scleral Icterus (L), No Scleral Icterus (R) Neck: Full Range of Motion, Normal Inspection, Non Tender, Supple Respiratory: Chest Non Tender, Lungs Clear, Normal Breath Sounds, No Accessory Muscle Use, No Respiratory Distress Cardiovascular: Regular Rate, Rhythm, No Edema, No Murmur, Normal Peripheral Pulses Gastrointestinal: Normal Bowel Sounds, No Organomegaly, No Pulsatile Mass, Soft , Guarding (voluntary in RLQ), Tenderness (RLQ) Rectal: Deferred Back: No CVA Tenderness, No Vertebral Tenderness Extremity: Normal Capillary Refill, Normal Inspection, Normal Range of Motion, Non Tender, No Calf Tenderness Neurologic/Psychiatric: Alert, Oriented x3, No Motor/Sensory Deficits, Normal Mood/Affect, teacher theater arts II-XII Norm as Tested Skin: Normal Color, Warm/Dry Lymphatic: No Adenopathy (neck, axilla or groin) Data Review Labs Laboratory Tests 03/02/17 05:42: Urine Color YELLOW, Urine Clarity CLEAR, Urine pH 5, Urine Specific [place] 1.025H, Urine Protein NEGATIVE, Urine Glucose (UA) NEGATIVE, Urine Ketones NEGATIVE, Urine Nitrite NEGATIVE, Urine Bilirubin NEGATIVE, Urine Urobilinogen NORMAL, Urine Leukocyte Esterase NEGATIVE, Urine RBC (Auto) 3+H, Urine RBC 0-2, Urine WBC NONE, Urine Squamous Epithelial Cells NONE, Urine Crystals NONE, Urine Bacteria NEGATIVE, Urine Casts NONE, Urine Mucus SMALLH, Urine Culture Indicated NO, Urine Opiates Screen NEGATIVE, Urine Oxycodone Screen NEGATIVE, Urine Methadone Screen NEGATIVE, Urine Propoxyphene Screen NEGATIVE, Urine Barbiturates Screen NEGATIVE, Ur Tricyclic Antidepressants Screen NEGATIVE, Urine Phencyclidine Screen NEGATIVE, Urine Amphetamines Screen NEGATIVE, Urine Methamphetamines Screen NEGATIVE, Urine Benzodiazepines Screen NEGATIVE, Urine Cocaine Screen NEGATIVE, Urine Cannabinoids Screen NEGATIVE 03/02/17 05:51: White Blood Count 20.0H, Red Blood Count 5.22, Hemoglobin 15.2, Hematocrit 43, Mean Corpuscular Volume 82, Mean Corpuscular Hemoglobin 29, Mean Corpuscular Hemoglobin Concent 35, Red Cell Distribution Width 13.5, Platelet Count 163, Mean Platelet Volume 10.3, Neutrophils (%) (Auto) 76H, Lymphocytes (%) (Auto) 13 , Monocytes (%) (Auto) 8, Eosinophils (%) (Auto) 4, Basophils (%) (Auto) 0, Neutrophils # (Auto) 15.2H, Lymphocytes # (Auto) 2.5, Monocytes # (Auto) 1.6H, Eosinophils # (Auto) 0.7H, Basophils # (Auto) 0.0, Neutrophils % (Manual) 70, Lymphocytes % (Manual) 16, Monocytes % (Manual) 6, Eosinophils % (Manual) 2, Basophils % (Manual) 0, Band Neutrophils 2, Reactive Lymphocytes 4, Blood Morphology Comment NORMAL, Sodium Level 138, Potassium Level 4.3, Chloride Level 102, Carbon Dioxide Level 24, Anion Gap 12, Blood Urea Nitrogen 10, Creatinine 0.89, Estimat Glomerular Filtration Rate > 60, BUN/Creatinine Ratio 11, Glucose Level 97, Calcium Level 9.6, Total Bilirubin 0.7, Aspartate Amino Transf (AST/SGOT) 19, Alanine Aminotransferase (ALT/SGPT) 12, Alkaline Phosphatase 82, Total Protein 8.0, Albumin 4.7H, Amylase Level 41, Lipase 27 Assessment/Plan Assessment/Plan Assessment/Plan Acute appendicitis Pt had elevated WBC of around 20k, RLQ pain and CT read as acute appendicitis. He was admitted with the plan being NPO, IV fluids, pain control, anti-emetics, and IV ABX. Will take pt to OR for Laparoscopic appendectomy possible open. Discussed the procedure with him; risks and complications, not limited to pain, bleeding, infection, scar and damage to bowel. All questions answered to his satisfaction. Clinical Quality Measures DVT/VTE Risk/Contraindication: Risk Factor Score Per Nursin RFS Level Per Nursing on Admit: 1=Low/No VTE PPX HERNANDO DEE DO Mar 02, 2017 10:08
[2017-03-02] MEDS: LACTATED RINGERS 1,000 ML IV SCH ×3 (10:23→18:00)
[2017-03-02] MEDS ORDERED: DEXAMETHASONE 10 MG/ML (DECADRON) 1 ML VIAL ONE (11:00)
[2017-03-02] MEDS ORDERED: proPOfol 200 MG/20 ML (DIPRIVAN) VIAL IV ONE (11:00)
[2017-03-02] MEDS ORDERED: MIDAZOLAM 2 MG/2 ML (VERSED) VIAL ONE (11:00)
[2017-03-02] MEDS ORDERED: LIDOCAINE PF 2% 5 ML (XYLOCAINE) VIAL ONE (11:00)
[2017-03-02] MEDS ORDERED: ROCURONIUM 50 MG/5 ML (ZEMURON) VIAL IV ONE (11:00)
[2017-03-02] MEDS ORDERED: ONDANSETRON 4 MG/2 ML (SDV) Z0FRAN ONE (11:00)
[2017-03-02] MEDS ORDERED: SEVOFLURANE (ULTANE) 15 ML INHAL SOLN ONE ×4 (11:00→13:04)
[2017-03-02] MEDS ORDERED: LIDOCAINE/EPI 1%-1:200,000 (XYLOCAINE) 10 ML VIAL ONE (11:25)
[2017-03-02] MEDS: LACTATED RINGERS 1,000 ML IV PRN ×2 (11:46→12:29)
[2017-03-02] MEDS ORDERED: NEOSTIGMINE (BLOXIVERZ ) 1 MG/1ML 10 ML VIAL ONE (12:40)
[2017-03-02] MEDS ORDERED: GLYCOPYRROLATE 0.2 MG/ML (ROBINUL) 2 ML VIAL ONE (12:40)
--- NOTE | 2017-03-02 13:11 | Progress Note-Post Operative ---
Post-Operative Progess Note Surgeon (s)/Ct Tech (s) Surgeon SWAPNA FUENTES DO Ct Tech: Siva Abbott MS III Pre-Operative Diagnosis Acute appy Post-Operative Diagnosis same Procedure & Operative Findings Date of Procedure 03/02/17 Procedure Performed/Findings Lap appy Anesthesia Type GET Estimated Blood Loss Estimated blood loss (mL): less than 3ml Specimens/Packing Specimens Removed appendix SWAPNA FUENTES DO Mar 02, 2017 13:11
[2017-03-02] MEDS ORDERED: HYDR-3812 PO (13:12)
--- NOTE | 2017-03-02 13:14 | Discharge Inst-Surgical ---
Discharge Inst-Surgical Depart Medication/Instructions New, Converted or Re-Newed RX: RX Given to Pt/Family Patient Instructions Follow up Appt: Make appointment for Wednesday. [phone] Instructions: No lifting greater than 10 pounds. No strenuous activity. May shower in 24 hours, no tub bath or soaking. Use incentive spirometer at home as directed. No Smoking Skin/Wound Care: May remove bandages. You need to leave the Dermabond on over incision it will fall off on its own. Symptoms to Report: Appetite Changes, Extremity Discoloration, Numbness/Tingling, Swelling Increased , Bleeding Excessive, Eyesight Changes, Pain Increased, Urine Color Change, Constipation(Persistent), Fever over 101 degree F, Pain/Pressure in chest, Urinating Difficulty, Cough Up/Vomit Blood, Heart Beat Irreg/Pounding, Pain/ Pressure in jaw, Vaginal Bleeding Increase, Cramps in feet or legs, Lightheadedness, Pain/Pressure in shoulder, Diarrhea(Persistent), Memory Changes Suddenly, Questions/Concerns, Weight gain consecutive days, Dizziness/ Fainting, Nausea/Vomiting, Shortness of Breath, Weight gain over 2 pounds If questions or concerns contact your physician Or seek help at emergency department. Activity Activity Instructions: Avoid Pulling & Pushing, Avoid Stress to Incision Driving Instructions: No Driving/Refer to Dr. Nicole Discharge Diet: No Restrictions Diet After 24 Hours: Clear Liquid if Nauseous If Any Problems/Questions/Issu: Contact Your Physician, Go to Emergency Room Skin/Wound Care Infection Signs and Symptoms: Increased Redness, Foul Odor of Wound, Increased Drainage, Skin Itchy or Has a Rash, Increased Swelling, Temperature Above 101 F Wound Care Comment: Heating pad for pain in shoulder or neck tonight. Bathing Instructions: Shower Stitches/[place]/Dermabond Dis: Dermabond Ice Pack: Ice On and Off Site SWAPNA FUENTES DO Mar 02, 2017 13:14
[2017-03-02] MEDS ORDERED: fentaNYL INJECTION 100 MCG/2 ML AMP IVP PRN (13:45)
[2017-03-02] MEDS ORDERED: morphine INJ 10 MG/ML 1ML (SYR OR VIAL) IVP PRN (13:45)
[2017-03-02] MEDS ORDERED: PIPERACILLIN SODIUM/TAZOBACTAM 4.5 GM in NS (IVPB) 100 ML IV NR (15:00)
[2017-03-02 15:02] VITALS: BP 131/62
[2017-03-02 16:22] VITALS: BP 126/57
[2017-03-02 18:20] VITALS: BP 126/57
--- NOTE | 2017-03-02 22:16 | OPERATIVE REPORT ---
DATE OF SERVICE: 03/02/2017 PREOPERATIVE DIAGNOSIS: Acute appendicitis. POSTOPERATIVE DIAGNOSIS: Acute appendicitis. PROCEDURE: Laparoscopic appendectomy. SURGEON: Hernando Dee DO CASHIER AND WAITER/WAITRESS: Siva Abbott, medical student III. ANESTHESIA: General endotracheal tube. SPECIMEN: Appendix. BLOOD LOSS: Less than 3 mL. FLUIDS: Per anesthesia. POSTOPERATIVE CONDITION: Stable. INDICATION FOR PROCEDURE: The patient is a 21-year-old male with right lower quadrant pain started in the mid abdomen and went to his right lower quadrant, came to the emergency room, had a white count of 20,[address] performed showed acute appendicitis. FINDINGS: The patient had acute appendicitis, it had not ruptured, but there was thickened and red and erythematous. PROCEDURE NOTE: After informed consent was obtained, the patient was brought to the operating room, placed on the operating table in supine position. He was sterilely prepped and draped in normal fashion. Local lidocaine was used to infiltrate under the umbilicus. I made an incision with #11 blade, carried down through the skin and subcutaneous tissue, then deepened down subcutaneous tissue with Bovie electrocautery down to the fascia. Fascia was incised with Bovie electrocautery, then bluntly entered the abdomen, swept a finger around, placed 0 Vicryl [id number]-rc-[id number] suture and then placed 11 mm trocar port under direct visualization. Created pneumoperitoneum and placed 2 more ports in a normal fashion using local lidocaine, 11 blade for stab incision and the VersaStep system, all done under direct visualization, one suprapubically and one on the left lower quadrant. The patient was placed in slight Trendelenburg and rotated to left. Had a very retrocecal appendix and able to visualize it, had to grasp the appendix right near the cecum, then made a small window right under the appendix at the cecum and elected to switch to a 5 mm camera, brought Endo-EDITH in and clamped across the base of the appendix, clamped and fired thereby transecting the appendix and then in a stepwise fashion coming across the mesoappendix with LigaSure, clamping, coagulating and transecting in this fashion taking the appendix completely off. Once it was completely freed up, then placed a bag in the abdomen, placed the appendix in the bag and then removed this through infraumbilical incision. Placed the port back in the abdomen, copiously irrigated with normal saline, pictures were taken of the staple line with looked good and then along the area where we taken off the appendix looked good. It was well away from terminal ileum as well as the rest of the cecum and ascending colon. At this point, I then placed the patient in supine, removed all ports under direct visualization and allowed pneumoperitoneum to escape. Infraumbilical incision was closed with 0 Vicryl vcluem-ug-vldon suture to close the fascia. Copiously irrigated all incisions with normal saline and then closed the 2 small 5 mm incisions with single interrupted 4-0 undyed Monocryl subcuticular stitch. Closed the infraumbilical incision with 3 interrupted 4-0 undyed Monocryl subcuticular stitches. Area was cleaned and dried, and Dermabond placed as well as Band-Aids. The patient was transferred to the recovery room in stable condition. Sponge, instrument and needle counts correct at the end of the case. Job ID: [id number] DocumentID: [id number] Dictated Date: 03/02/2017 16:11:26 Endoscopy Technician Date: 03/02/2017 22:16:10 Dictated By: DO MARIA DOLORES POP
--- NOTE | 2017-03-03 13:09 | Anesthesia-General Post-Op ---
General Patient Condition Mental Status/LOC: Same as Preop Cardiovascular: Satisfactory Nausea/Vomiting: Absent Respiratory: Satisfactory Pain: Controlled Complications: Absent Post Op Complications Complications None Follow Up Care/Instructions Patient Instructions None needed. Anesthesia/Patient Condition Patient Condition Patient is doing well, no complaints, stable vital signs, no apparent adverse anesthesia problems. No complications reported per nursing. JOELLE GAMBOA CRNA Mar 03, 2017 13:08
--- OUTSIDE RECORDS SUMMARY | 2017-03-04 08:41 | XMS REPORT | Continuity of Care Document ---
Author Author [facility] Address Unknown Phone Unavailable Allergies Medications Problems Procedures Results Encounters ACCT No. Visit Date/Time Discharge Status Pt. Type Provider Facility Loc./Unit Complaint [id number] 11/27/2015 16:50:01 11/27/2015 23: 59:59 [facility] Outpatient Angel Pearl [id number] 07/10/2014 14:24:55 07/10/2014 23: 59:59 [facility] Outpatient Angel Pearl [id number] 06/15/2014 10:32:38 06/15/2014 23: 59:59 [facility] Outpatient Angel Pearl [id number] 03/12/2014 14:58:18 03/12/2014 23: 59:59 [facility] Outpatient Angel Pearl [id number] 07/28/2013 14:53:50 07/28/2013 23: 59:59 [facility] Outpatient Angel Pearl [id number] 04/27/2013 09:59:59 04/27/2013 23: 59:59 [facility] Outpatient Rena Norris [id number] 03/13/2013 15:49:34 03/13/2013 23: 59:59 Angel Moore
== END 2017-03-02 18:20 | disposition home or self-care (01) ==
LOC: ER 04:45 → 4TH 06:20 → UNDOADMOB 06:20 → SDC 06:20 → 4TH 06:20 → SDC 18:20 → UNDODISOB 18:20
PROVIDERS: ATTEND Surgery
DX: K35.80 Unspecified acute appendicitis (principal)
CPT/HCPCS: 36415; 74020; 74177; 80053; 80306; 81000; 82150; 83690; 85007; 85027; 96361; 96374; 96375

== ENCOUNTER → 2018-06-23 | Outpatient (CLI) | payer OTHER ==
[~2018-06-23] MED LIST: ACHD5005 PO; IBUP-30 PO
--- NOTE | 2018-06-23 17:26 | Diagnostic Imaging Report ---
PROCEDURE: CT neck soft tissue without contrast. TECHNIQUE: Multiple contiguous axial images were obtained through the neck without the use of intravenous contrast. Auto Exposure Controls were utilized during the CT exam to meet ALARA standards for radiation dose reduction. INDICATION: Fever, throat pain, coughing up blood, leukocytosis x 3 days. CORRELATION STUDY: None. FINDINGS: The nasopharynx and oropharynx appear unremarkable. There is no suggestion for peritonsillar abscess formation. Slight soft tissue prominence at the level of the vallecula. The vocal cords and subglottic airway are patent. No suggestion for airway compromise. The parapharyngeal fat planes are without significant deviation. There are a few mildly prominent scattered cervical lymph nodes. There is asymmetry with what appears to be likely hypoplastic, essentially absent, left parotid gland. The right parotid gland is unremarkable. The submandibular glands and thyroid gland are unremarkable. The visualized paranasal sinuses are clear. No significant mucosal thickening or air-fluid levels. Visualized lung apices are unremarkable. Cervical spine appears unremarkable. There is suggestion of mild subcutaneous edema and haziness in the subcutaneous fat diffusely. IMPRESSION: 1. CT of the soft tissue neck demonstrates no definitive tonsillar abscess or otherwise acute findings of the soft tissue of the neck. 2. There is incidental note made of absence or atrophy of the left parotid gland. Telephone call has been made to Dr. Lemus. Dictated by: Dictated on workstation # [id number]
== END ==
LOC: RAD 16:40
PROVIDERS: ATTEND Nurse Practitioner Family
DX: D72.829 Elevated white blood cell count, unspecified (principal); R04.2 Hemoptysis; R07.0 Pain in throat; R50.9 Fever, unspecified
CPT/HCPCS: 70490

== ENCOUNTER 2018-07-15 05:40 | Outpatient (CLI) | payer OTHER ==
[~2018-07-15] VITALS: Ht 177.8 cm; Wt 65.9 kg
== END 2018-07-15 11:26 ==
LOC: PREOP 05:40
PROVIDERS: ATTEND Surgery
DX: Z01.818 Encounter for other preprocedural examination (principal)

== ENCOUNTER → 2018-07-18 | Day surgery (SDC) | payer OTHER ==
[~2018-07-18] VITALS: Ht 177.8 cm; Wt 65.9 kg
[~2018-07-18] MED LIST changes: +HURRICAINE EXT TUBE (BENZOCAINE) ONE; +HURRICAINE EXT TUBE (BENZOCAINE) XX PRN; +LACTATED RINGERS 1,000 ML IV ONE; +LACTATED RINGERS 1,000 ML IV STA; +MIDAZOLAM 5 MG/5 ML (VERSED) VIAL ONE; +PROPOFOL INJECTION 50 ML IV ONE; +SUCCINYLCHOLINE INJ 100 MG/5 ML SYR ONE
[2018-07-18 11:37] VITALS: BP 139/81
--- NOTE | 2018-07-18 12:02 | Progress Note-Pre Operative ---
Pre-Operative Progress Note H&P Reviewed The H&P was reviewed, patient examined and no changes noted. Time Seen by Provider: 11:49 Date H&P Reviewed: Jul 18, 2018 Time H&P Reviewed: 11:50 Pre-Operative Diagnosis: dysphagia SWAPNA FUENTES DO Jul 18, 2018 12:02
--- NOTE | 2018-07-18 12:03 | Progress Note-Post Operative ---
Post-Operative Progess Note Surgeon (s)/Geophysical Manager (s) Surgeon SWAPNA FUENTES DO Geophysical Manager: none Pre-Operative Diagnosis dysphagia Post-Operative Diagnosis gastritis esophagitis hiatal hernia pharyngeal ulcer Procedure & Operative Findings Date of Procedure 07/18/18 Procedure Performed/Findings EGD with bx Anesthesia Type IV sedation by [employer]EARCH [employer]ARM SUPERVISOR Estimated Blood Loss Estimated blood loss (mL): scant Specimens/Packing Specimens Removed antral bx GE jxn bx SWAPNA FUENTES DO Jul 18, 2018 12:03
--- NOTE | 2018-07-18 12:04 | Endoscopy Discharge Instruct ---
Endo Procedure/Findings Findings 1.: Gastritis 2.: Hiatal Hernia Discharge Instructions - Activity: You might feel a little sleepy until tomorrow. This is due to the medicine you received to relax you. Until tomorrow, you should: NOT drive a car, operate machinery or power tools. NOT drink any alcoholic beverages. NOT make any important decisions or sign importortant papers. Do not return to work until tomorrow, unless otherwise instructed. Resume previous activities tomorrow. Diet: Start by taking liquids. If you tolerate liquids, advance to solid food. make an appointment for one week Instructions: 1.: EGD in 1 year Notify Physician - If you experience excessive bleeding, unusual abdominal pain, fever, or chest pain, contact your doctor immediately. Follow-Up: - I have received and understand the above instructions and will call my doctor if I have any further questions. Patient Signature Date Nurse Signature Other (Relationship) SWAPNA FUENTES DO Jul 18, 2018 12:04
[2018-07-18 12:30] VITALS: BP 122/64
--- OUTSIDE RECORDS SUMMARY | 2018-07-18 12:37 | XMS REPORT ---
Author Author Angel Pearl [facility] Address [address] [place], [place] [address] Care Team Providers Care Echo Tech Name Role Phone Angel Pearl PCP Angel Pearl PreferredProvider Allergies and Adverse Reactions Name Reaction Notes doxycycline hyclate [facility] Plan of Treatment Not available. Medications [...] HC BMI BSA BMI Percentile O2 Sat(%) 07/28/2017 2:53:00 PM 120 mmHg 70 mmHg 76 bpm 16 rpm 98.2 F 140 lbs 68 in 21.2867 kg/m 1.7455 m 99 % 11/27/2015 4:01:00 PM 112 mmHg 70 mmHg [...] F 117.25 lbs 68 in 17.8276 kg/m 1.5974 m 3.5 % 100 % 01/02/2013 11:21:00 AM 116 mmHg 68 mmHg 76 bpm 18 rpm 98.4 F 111 lbs 69 in 16.39 kg/m2 1.57 m2 -17.7 % 97 % 12/15/2012 8:46:00 AM 71 bpm 20 rpm 97.8 F 114 lbs 66 in 18.3999 kg/m 1.5518 m 10 % 100 % 10/20/2012 2:18:00 PM [...] rpm 98.9 F 100.4 lbs 65.75 in 16.3283 kg/m 1.4535 m 0.5 % 100 % 11/21/2010 8:27:00 AM 118 mmHg 68 mmHg 75 bpm 20 rpm 98.2 F 96 lbs 99 % 02/26/2010 3:05:00 PM 80 bpm 18 rpm 98.5 F 91.787 lbs 02/17/2010 1:26:00 PM 108 mmHg 64 mmHg 84 bpm 18 rpm 99 F 93 lbs 63 in 16.474 kg/m 1.3693 m 7.4 % 01/15/2010 3:20:00 PM [...] exposure student (high school) 9th grade at [employer] ([id number]) smoke inside Pets at home (inside) dog Tobacco Never smoker History of Procedures Date Ordered Description Order Status 12/06/2015 12:00 AM BIOPSY SKIN LESION Reviewed 03/31/2012 12:00 AM X-RAY EXAM OF HIP Reviewed 03/31/2012 12:00 AM US EXAM SCROTUM Reviewed 07/28/2017 12:00 AM URINALYSIS AUTO W/SCOPE Returned 07/16/2009 12:00 AM STREP A ASSAY W/OPTIC Reviewed 10/20/2012 12:00 AM CHEST X-RAY 2VW FRONTAL&LATL Reviewed 01/02/2013 12:00 AM THER/PROPH/DIAG INJ SC/IM Reviewed 01/02/2013 12:00 AM Decadron, Per 1 Mg [facility]# [address]-48 Reviewed 01/02/2013 12:00 AM Depo-Medrol, Per 80 Mg [facility]#1936-[address]-26 Reviewed 03/16/2013 12:00 AM DESTRUCT PREMALG LESION Reviewed 04/27/2013 12:00 AM STREP A ASSAY W/OPTIC Reviewed 04/27/2013 12:00 AM INFLUENZA A/B AG EIA Reviewed 07/28/2013 12:00 AM Dermatology Consult Reviewed 02/26/2010 12:00 AM Kenalog per 10Mg -[facility]#[id number] (Jr) Reviewed 03/12/2014 12:00 AM RADEX ABDOMEN COMPL W/DCBTS&/ERC VIEWS Reviewed 06/15/2014 12:00 AM Dermatology Consult Reviewed Results Summary Date and Description Results 07/16/2009 5:17 PM STREP SCREEN NEGATIVE 04/27/2013 9:50 AM INFLUENZA A & B NO INFLUENZA A OR B DETECTED STREP SCREEN NEGATIVE History Of Immunizations Not available. History of [...] of lower back Dec 06 2015 12:37PM Hematuria, unspecified type Jul 28 2017 2:54PM Payers Insurance Name Company Name Plan Name Plan Number Policy Number Policy Group Number Start Date [facility] [id number] N/A [facility] [id number] N/A [employer] - CMF[employer] RHC - CMFHP [id number] N/A [employer] - [place] State [place] [employer] [place] [id number] N/A [facility] [id number] Thursday, 2012 [place] [employer] [place] [employer] [place] [id number] N/A History of Encounters Visit Date Visit Type Provider 07/28/2017 Office visit Angel Pearl APRN 11/27/2015 Office visit Angel Pearl APRN 07/10/2014 Office visit Angel Pearl APRN 06/15/2014 [...] visit Rena Norris MD 03/18/2012 Office visit eRna Norris MD 12/29/2011 Office visit Rena Norris [...]
--- OUTSIDE RECORDS SUMMARY | 2018-07-18 12:38 | XMS REPORT | Continuity of Care Document ---
Author Organization Unknown Address Unknown Allergies Active Description Code Type Severity Reaction Onset Reported/Identified Relationship to Patient Clinical Status Yes No Known Drug Allergies [id number] Drug Allergy Unknown N/A 07/15/2018 Medications There is no data. Problems Date Dx Coded Attending Type Code Diagnosis Diagnosed By 03/02/2017 SWAPNA FUENTES DO B Ot K35.80 UNSPECIFIED ACUTE APPENDICITIS 03/05/2017 ALFREDO BRUNNER SWAPNA B Ot K35.80 UNSPECIFIED ACUTE APPENDICITIS 03/08/2017 ALFREDO BRUNNER SWAPNA B Ot K35.80 UNSPECIFIED ACUTE APPENDICITIS 06/24/2018 WOODS, AUGUSTINA E PLASTICS TECHNICIAN Ot D72.829 ELEVATED WHITE BLOOD CELL COUNT, UNSPECI 06/24/2018 WOODS, AUGUSTINA E PLASTICS TECHNICIAN Ot R04.2 HEMOPTYSIS 06/24/2018 WOODS, AUGUSTINA E PLASTICS TECHNICIAN Ot R07.0 PAIN IN THROAT 06/24/2018 WOODS, AUGUSTINA E PLASTICS TECHNICIAN Ot R50.9 FEVER, UNSPECIFIED 06/24/2018 WOODS, AUGUSTINA E PLASTICS TECHNICIAN Ot D72.829 ELEVATED WHITE BLOOD CELL COUNT, UNSPECI 06/24/2018 WOODS, AUGUSTINA E PLASTICS TECHNICIAN Ot R04.2 HEMOPTYSIS 06/24/2018 WOODS, AUGUSTINA E PLASTICS TECHNICIAN Ot R07.0 PAIN IN THROAT 06/24/2018 WOODS, AUGUSTINA E PLASTICS TECHNICIAN Ot R50.9 FEVER, UNSPECIFIED 06/24/2018 WOODS, AUGUSTINA E PLASTICS TECHNICIAN Ot D72.829 ELEVATED WHITE BLOOD CELL COUNT, UNSPECI 06/24/2018 WOODS, AUGUSTINA E PLASTICS TECHNICIAN Ot R04.2 HEMOPTYSIS 06/24/2018 WOODS, AUGUSTINA E PLASTICS TECHNICIAN Ot R07.0 PAIN IN THROAT 06/24/2018 WOODS, AUGUSTINA E PLASTICS TECHNICIAN Ot R50.9 FEVER, UNSPECIFIED 07/06/2018 WOODS, AUGUSTINA E PLASTICS TECHNICIAN Ot D72.829 ELEVATED WHITE BLOOD CELL COUNT, UNSPECI 07/06/2018 WOODS AUGUSTINA E PLASTICS TECHNICIAN Ot R04.2 HEMOPTYSIS 07/06/2018 WOODS AUGUSTINA E PLASTICS TECHNICIAN Ot R07.0 PAIN IN THROAT 07/06/2018 WOODS, AUGUSTINA E PLASTICS TECHNICIAN Ot R50.9 FEVER, UNSPECIFIED Procedures There is no data. Results Test Result Range Complete urinalysis with reflex to culture - 03/02/17 05:42 Urine color determination YELLOW NRG Urine clarity determination CLEAR NRG Urine pH measurement by test strip 5 5-9 Specific gravity of urine by test strip 1.025 1.016- 1.022 Urine protein assay by test strip, semi-quantitative NEGATIVE NEGATIVE Urine glucose detection by automated test strip NEGATIVE NEGATIVE Erythrocytes detection in urine sediment by light microscopy 3+ NEGATIVE Urine ketones detection by automated test strip NEGATIVE NEGATIVE Urine nitrite detection by test strip NEGATIVE NEGATIVE Urine total bilirubin detection by test strip NEGATIVE NEGATIVE Urine urobilinogen measurement by automated test strip (mass/volume) NORMAL NORMAL Urine leukocyte esterase detection by dipstick NEGATIVE NEGATIVE Automated urine sediment erythrocyte count by microscopy (number/high power field) [HPF] NRG Automated urine sediment leukocyte count by microscopy (number/high power field ) NONE NRG Bacteria detection in urine sediment by light microscopy NEGATIVE NRG Squamous epithelial cells detection in urine sediment by light microscopy NONE NRG Crystals detection in urine sediment by light microscopy NONE NRG Casts detection in urine sediment by light microscopy NONE NRG Mucus detection in urine sediment by light microscopy SMALL NRG Complete urinalysis with reflex to culture NO NRG Urine drug screening test - 03/02/17 05:42 Urine phencyclidine detection by screening method NEGATIVE NEGATIVE Urine benzodiazepines detection by screening method NEGATIVE NEGATIVE Urine cocaine detection NEGATIVE NEGATIVE Urine amphetamines detection by screening method NEGATIVE NEGATIVE Urine methamphetamine detection by screening method NEGATIVE NEGATIVE Urine cannabinoids detection by screening method NEGATIVE NEGATIVE Urine opiates detection by screening method NEGATIVE NEGATIVE Urine barbiturates detection NEGATIVE NEGATIVE Screening urine tricyclic antidepressants detection NEGATIVE NEGATIVE Urine methadone detection by screening method NEGATIVE NEGATIVE Urine oxycodone detection NEGATIVE NEGATIVE Urine propoxyphene detection NEGATIVE NEGATIVE Complete blood count (CBC) with automated white blood cell (WBC) differential - 03/02/17 05:51 Blood leukocytes automated count (number/volume) 20.0 10*3/uL 4.3-11.0 Blood erythrocytes automated count (number/volume) 5.22 10*6/uL 4.35-5.85 Venous blood hemoglobin measurement (mass/volume) 15.2 g/dL 13.3-17.7 Blood hematocrit (volume fraction) 43 % 40-54 Automated erythrocyte mean corpuscular volume 82 [foz_us] 80-99 Automated erythrocyte mean corpuscular hemoglobin (mass per erythrocyte) 29 pg 25-34 Automated erythrocyte mean corpuscular hemoglobin concentration measurement ( mass/volume) 35 g/dL 32-36 Automated erythrocyte distribution width ratio 13.5 % 10.0-14.5 Automated blood platelet count (count/volume) 163 10*3/uL 130-400 Automated blood platelet mean volume measurement 10.3 [foz_us] 7.4-10.4 Automated blood neutrophils/100 leukocytes 76 % 42-75 Automated blood lymphocytes/100 leukocytes 13 % 12-44 Blood monocytes/100 leukocytes 8 % 0-12 Automated blood eosinophils/100 leukocytes 4 % 0-10 Automated blood basophils/100 leukocytes 0 % 0-10 Blood neutrophils automated count (number/volume) 15.2 10*3 1.8-7.8 Blood lymphocytes automated count (number/volume) 2.5 10*3 1.0-4.0 Blood monocytes automated count (number/volume) 1.6 10*3 0.0-1.0 Automated eosinophil count 0.7 10*3/uL 0.0-0.3 Automated blood basophil count (count/volume) 0.0 10*3/uL 0.0-0.1 Blood manual differential performed detection - 03/02/17 05:51 Blood monocytes/100 leukocytes 6 % NR Manual blood segmented neutrophils/100 leukocytes 70 % NRG Blood band neutrophils/100 leukocytes 2 % NRG Manual blood lymphocytes/100 leukocytes 16 % NRG Manual eosinophils/100 leukocytes in nose 2 % NRG Manual blood basophils/100 leukocytes 0 % NRG Blood lymphocytes variant/100 leukocytes 4 % NRG Blood erythrocyte morphology finding identification NORMAL [facility] Comprehensive metabolic panel - 03/02/17 05:51 Serum or plasma sodium measurement (moles/volume) 138 mmol/L 135-145 Serum or plasma potassium measurement (moles/volume) 4.3 mmol/L 3.6-5.0 Serum or plasma chloride measurement (moles/volume) 102 mmol/L 98-107 Carbon dioxide 24 mmol/L 21-32 Serum or plasma anion gap determination (moles/volume) 12 mmol/L 5-14 Serum or plasma urea nitrogen measurement (mass/volume) 10 mg/dL 7-18 Serum or plasma creatinine measurement (mass/volume) 0.89 mg/dL 0.60-1.30 Serum or plasma urea nitrogen/creatinine mass ratio 11 NRG Serum or plasma creatinine measurement with calculation of estimated glomerular filtration rate > NRG Serum or plasma glucose measurement (mass/volume) 97 mg/dL 70-105 Serum or plasma calcium measurement (mass/volume) 9.6 mg/dL 8.5-10.1 Serum or plasma total bilirubin measurement (mass/volume) 0.7 mg/dL 0.1-1.0 Serum or plasma alkaline phosphatase measurement (enzymatic activity/volume) 82 U/L 40-136 Serum or plasma aspartate aminotransferase measurement (enzymatic activity/ volume) 19 U/L 5-34 Serum or plasma alanine aminotransferase measurement (enzymatic activity/volume ) 12 U/L 0-55 Serum or plasma protein measurement (mass/volume) 8.0 g/dL 6.4-8.2 Serum or plasma albumin measurement (mass/volume) 4.7 g/dL 3.2-4.5 Serum or plasma amylase measurement (enzymatic activity/volume) - 03/02/17 05: 51 Serum or plasma amylase measurement (enzymatic activity/volume) 41 U /L 25-125 Lipase - 03/02/17 05:51 Lipase 27 U/L 8-78 Encounters ACCT No. Visit Date/Time Discharge Status Pt. Type Provider Facility Loc./Unit Complaint [id number] 07/28/2017 16:07:57 07/28/2017 23:59:59 KEL Outpatient Angel Pearl [id number] 11/27/2015 16:50:01 11/27/2015 23:59:59 KEL Outpatient Angel Pearl [id number] 07/10/2014 14:24:55 07/10/2014 23:59:59 KEL Outpatient Angel Pearl [id number] 06/15/2014 10:32:38 06/15/2014 23:59:59 KEL Outpatient Angel Pearl [id number] 03/12/2014 14:58:18 03/12/2014 23:59:59 Angel Moore [id number] 07/28/2013 14:53:50 07/28/2013 23:59:59 CLS Outpatient Angel Pearl [id number] 04/27/2013 09:59:59 04/27/2013 23:59:59 CLS Outpatient NorrisRena [id number] 03/13/2013 15:49:34 03/13/2013 23:59:59 CLS Outpatient Angel Pearl [id number] 07/15/2018 05:40:00 07/15/2018 11:26:00 DIS Outpatient RITA GUPTA DO [facility] PREOP EGD [id number] 06/23/2018 16:40:00 06/23/2018 23:59:59 CLS Outpatient AUGUSTINA WOODS [facility] RAD THROAT PAIN,COUGHING UP BLOOD [id number] 03/02/2017 06:20:00 03/02/2017 18:20:00 DIS Outpatient SWAPNA FUENTES DO [facility] SDC APPENDICITIS [id number] 07/18/2018 12:20:00 PEN Preadmit SWAPNA FUENTES DO [facility] ENDO THROAT PAIN
--- OUTSIDE RECORDS SUMMARY | 2018-07-18 12:38 | XMS REPORT ---
Author Author Angel Pearl [facility] Address [address] [place], [place] [address] Care Team Providers Care Customer Relations Consultant Name Role Phone Angel Pearl PCP Angel Pearl PreferredProvider Allergies and Adverse Reactions Name Reaction Notes doxycycline hyclate [facility] Plan of Treatment Not available. Medications Active [...] exposure student (high school) 9th grade at [employer] ([id number]) smoke inside Pets at home (inside) dog [...] 12:00 AM Decadron, Per 1 Mg [facility]# [address]-09 Reviewed 01/02/2013 12:00 AM Depo-Medrol, Per 80 Mg [facility]#0208-7069-50 Reviewed 03/16/2013 12:00 AM DESTRUCT PREMALG LESION Reviewed 04/27/2013 12:00 AM STREP A ASSAY W/OPTIC Reviewed 04/27/2013 12:00 AM INFLUENZA A/B AG EIA Reviewed 07/28/2013 12:00 AM Dermatology Consult Reviewed 02/26/2010 12:00 AM Kenalog per 10Mg -[facility]#[id number] (Jr) Reviewed 03/12/2014 12:00 AM RADEX ABDOMEN [...] Policy Number Policy Group Number Start Date [facility] [id number] N/A [facility] [employer] [id number] N/A [employer] - CMFHP [employer] - RHC - CMFHP [id number] N/A [employer] [place] [employer] [place] [id number] N/A [facility] [id number] Thursday, 2012 [place] [employer] [place] [employer] [id number] N/A History of Encounters Visit Date Visit [...]
[2018-07-18 13:00] VITALS: BP 114/67
[2018-07-18 13:10] VITALS: BP 114/67
--- NOTE | 2018-07-18 14:23 | Anesthesia-General Post-Op ---
MAC Patient Condition Mental Status/LOC: Same as Preop Cardiovascular: Satisfactory Nausea/Vomiting: Absent Respiratory: Satisfactory Pain: Controlled Complications: Absent Post Op Complications Complications None Follow Up Care/Instructions Patient Instructions None needed. Anesthesiology Discharge Order Discharge Order Patient is doing well, no complaints, stable vital signs, no apparent adverse anesthesia problems. No complications reported per nursing. JOELLE GAMBOA CRNA Jul 18, 2018 14:23
--- NOTE | 2018-07-19 01:15 | OPERATIVE REPORT ---
DATE OF SERVICE: PREOPERATIVE DIAGNOSIS: Dysphagia. POSTOPERATIVE DIAGNOSES: 1. Gastritis. 2. Esophagitis. 3. Hiatal hernia. 4. Pharyngeal ulcer. PROCEDURE: EGD with biopsy. SURGEON: Hernando Dee DO. HOUSEFELLOW: None. ANESTHESIA: IV sedation by HORSE RACER. SPECIMEN: One biopsy from the antrum, one biopsy from the esophagus. BLOOD LOSS: Scant. FLUIDS: Per anesthesia. POSTOPERATIVE CONDITION: Stable. INDICATION FOR PROCEDURE: The patient is a 22-year-old male who has been having some trouble with dysphagia, nothing he has done has helped, needed to get a workup. FINDINGS: The patient had a little bit of inflammation in the stomach as well as of the esophagus and had a small hiatal hernia, but also noted a pharyngeal ulcer, took a picture of this. This most likely was causing him pain when he swallowed. PROCEDURE NOTE: After informed consent was obtained, the patient was brought to the endoscopy suite, placed in the left lateral decubitus position and administered IV sedation by the HORSE RACER then monitored his vitals the entire time, heart rate, blood pressure and pulse ox and the scope was inserted down the mouth through the esophagus and into the stomach, noted little bit inflammation of the stomach, did a biopsy of the antrum, duodenum looked okay. Retroflexed the scope. looked like a small hiatal hernia, took a picture of this and then backed up into the esophagus, had some change in the GE junction, like to do some biopsies here and then pulled the scope up the esophagus, did not see anything up the rest of the esophagus. Actually took a picture of the vocal cords, it looked fine. There was a little bit of erythema on the uvula and then noted what looked like an ulcer just above the vocal cords. Elected not to biopsy this as it was a little bit too high up, had ear nose throat physician biopsy needs, I will leave this for the ENT doctor, he is going to see. Pictures were taken. Removed the scope. The patient tolerated the procedure and recovered in endoscopy suite. Job ID: [id number] DocumentID: [id number] Dictated Date: 07/18/2018 15:18:44 Bond Trader Date: 07/19/2018 01:14:20 Dictated By: HERNANDO DEE DO
== END | disposition home or self-care (01) ==
LOC: ENDO 11:16
PROVIDERS: ATTEND Surgery
DX: K29.70 Gastritis, unspecified, without bleeding (principal); K20.0 Eosinophilic esophagitis; K44.9 Diaphragmatic hernia without obstruction or gangrene; J39.2 Other diseases of pharynx